=== PATIENT | male | born 1990 | race Caucasian/White ===

== ENCOUNTER 2017-10-03 10:49 | Emergency (ER) | payer OTHER ==
[~2017-10-03] VITALS: Ht 175.2 cm; Wt 72.6 kg
[2017-10-03] MEDS ORDERED: KEFLEX500 M1 PO (11:18)
[2017-10-03] MEDS ORDERED: IBUPROFEN600 MG PO (12:15)
[2017-10-03] MEDS ORDERED: DOXYCYCLINE100 M3 PO (12:15)
== END 2017-10-03 11:30 | disposition home or self-care (01) ==
LOC: ED 10:49
DX: L73.2 Hidradenitis suppurativa (principal); L02.412 Cutaneous abscess of left axilla; Z88.0 Allergy status to penicillin; Z88.6 Allergy status to analgesic agent; Z88.5 Allergy status to narcotic agent